=== PATIENT | male | born 1990 | race Caucasian/White ===

== ENCOUNTER 2019-07-01 20:40 | Emergency (ER) | payer BC, OTHER ==
[~2019-07-01] VITALS: Ht 182.9 cm; Wt 77.1 kg
--- NOTE | 2019-07-01 20:56 | ED Lower Extremity ---
General Chief Complaint: Lower Extremity Stated Complaint: RT KNEE AND LEG PAIN Source: patient Exam Limitations: no limitations History of Present Illness Date Seen by Provider: Jul 01, 2019 Time Seen by Provider: 20:45 Initial Comments Patient presents with right knee and right foot pain. Reports he's had the pain for about 2 days. Patient has some bruising on the lateral aspect of the right knee and is unsure how he got it. Patient reports he stands all night at work. That hurts with movement and it feels like there something "grinding under the patella" patient also complains in the top of the right foot. He does not recall injuring it to cause the bruising. he is able a ambulate and bear weight but does walk with a slight limp. Allergies and Home Medications Allergies Coded Allergies: No Known Drug Allergies (Unverified , 07/01/19) Patient Home Medication List Home Medication List Reviewed: Yes Review of Systems Constitutional: No chills, No fever EENTM: no symptoms reported Respiratory: No cough Cardiovascular: no symptoms reported Gastrointestinal: no symptoms reported Musculoskeletal: see HPI Skin: see HPI Past [place]-Zikchn-Ilgszg Hx Past Med/Social Hx: Reviewed Nursing Past Med/Soc Hx Patient Social History Recent Foreign Travel: No Contact w/Someone Who Travel: No Physical Exam Vital Signs Vital Signs - First Documented 07/01/19 20:45 Temp 97.9 Pulse 72 Resp 16 B/P (MAP) 117/96 (103) Pulse Ox 96 O2 Delivery Room Air Capillary Refill : Height, Weight, BMI Height: '" Weight: lbs. oz. kg; BMI Method: General Appearance: WD/WN, no apparent distress HEENT: PERRL/EOMI Cardiovascular: regular rate, rhythm, no edema Respiratory: chest non-tender, lungs clear Gastrointestinal: soft Knees: left knee non-tender, left knee normal inspection; bilateral knee normal range of motion; right knee ecchymosis, right knee soft tissue tenderness Feet: left foot non-tender; right foot soft tissue tenderness Neurologic/Psychiatric: alert, normal mood/affect Skin: ecchymosis (Mild lateral aspect of the right knee) Progress/Results/Core Measures Results/Orders My Orders Orders - ARTHUR RAMOS DO Foot 3 View Right (07/01/19 20:51) Knee 4 View Or > Right (07/01/19 20:51) Vital Signs/I&O 07/01/19 20:45 Temp 97.9 Pulse 72 Resp 16 B/P (MAP) 117/96 (103) Pulse Ox 96 O2 Delivery Room Air Diagnostic Imaging Diagonstic Imaging: Xray Plain Films/CT/US/NM/MRI: knee, other (foot ) Reviewed: Reviewed/Discussed Departure Impression Primary Impression: Contusion of knee Qualified Codes: S80.01XA - Contusion of right knee, initial encounter Additional Impressions: Sprain or strain of foot Strain of right knee Qualified Codes: S86.911A - Strain of unspecified muscle(s) and tendon(s) at lower leg level, right leg, initial encounter Disposition: HOME, SELF-CARE Condition: Stable Departure-Patient Inst. Referrals: NO,LOCAL PHYSICIAN (PCP) Primary Care Physician Patient Instructions: Knee Sprain (DC), Contusion (DC) Work/School Note: Work Release Form Date Seen in the Emergency Department: Jul 01, 2019 Return to Work: Jul 02, 2019 ARTHUR RAMOS DO Jul 01, 2019 20:56
--- NOTE | 2019-07-01 21:16 | Diagnostic Imaging Report ---
INDICATION: Bruising to the foot, dorsally. EXAMINATION: Three views of the right foot were obtained. FINDINGS: No focal swelling apparent. No mass, fluid collection or radiopaque foreign body. No soft tissue gas. No fracture. No acute parosteal reaction. Incidental bipartite lateral hallux sesamoid noted. IMPRESSION: Unremarkable three-view foot series. Dictated by: Dictated on workstation # [id number]
--- NOTE | 2019-07-01 21:16 | Diagnostic Imaging Report ---
INDICATION: Pain, bruising FINDINGS: Four-view right knee showed no fracture, dislocation or acute appearing articular incongruity. No loose body. No joint effusion. The articular surfaces smooth. IMPRESSION: Unremarkable complete right knee series Dictated by: Dictated on workstation # [id number]
[2019-07-01 21:25] VITALS: BP 117/96
== END 2019-07-01 21:33 | disposition home or self-care (01) ==
LOC: ER FS 20:42
DX: S86.911A Strain of unspecified muscle(s) and tendon(s) at lower leg level, right leg, initial encounter (principal); S93.601A Unspecified sprain of right foot, initial encounter; X58.XXXA Exposure to other specified factors, initial encounter
CPT/HCPCS: 73564; 73630